=== PATIENT | female | born 1950 | race Asian ===

== ENCOUNTER 2018-09-10 08:33 | Day surgery (SDC) | payer MEDICARE, SELFPAY ==
--- NOTE | 2018-09-10 | PATH_ITS ---
[facility] Accession Number: [id number] . 01 Material submitted: . CECAL POLYP . 02 Diagnosis: Cecum, Polyp: Colonic mucosa with prominent benign lymphoid aggregate. Negative for serrated lesion, dysplasia or malignancy. MRV/09/11/2018 . 02 Electronically signed: . Josse Ko MD, PhD, Pathologist NPI- [id number] . 01 Gross description: . Received one formalin-filled container labeled with the patient's name and labeled cecal polyp. The specimen consists of a 0.3 cm portion of tissue, entirely submitted in one cassette. (DC:[id number]) /FRR . 02 Pathologist provided ICD-10: K63.5 . 02 CPT . 935575 Performed at: 01 [facility] [address] [address], [place], [place] [id number] MD Zachary Sears MD Phone: [phone] Performed at: 02 [facility] [address] [place], [place] [id number] MD Juliette Cardenas MD Phone: [phone]
--- NOTE | 2018-09-10 07:53 | PM.HP.1 ---
History of Present Illness Date Patient Seen: 09/10/18 Chief complaint: [id number] COLONOSCOPY Narrative: 68-year-old female who was seen in our office on 08/12/2018 for pre operative evaluation prior to undergoing colon polyp surveillance. She is currently on Plavix due to a history of TIA. Last colonoscopy was performed in 2013 with findings of a in an adenomatous colon polyp. There is also a family history of colon cancer in her brother at age 65 and 2 cousins less than 60. Her Plavix has been held for 5 days Patient History Medical History Adenomatous colon polyp (Acute) Breast cyst (Acute) Constipation (Acute) Difficulty walking (Acute) History of hysterectomy (Acute) Hypercholesterolemia (Acute) Intolerance to cold (Acute) Intolerance to heat (Acute) Memory disturbance (Acute) Numbness (Acute) Osteoporosis (Acute) TIA (transient ischemic attack) (Acute) Surgical History History of appendectomy (Acute) History of colonoscopy (Acute) History of total hip arthroplasty (Acute) Social History household members: spouse Meds Home Medications Medication Instructions Recorded Confirmed Type clopidogrel 75 mg PO DAILY 09/10/18 09/10/18 History magnesium 500 mg PO DAILY 09/10/18 09/10/18 History ranitidine HCl 150 mg PO BID 09/10/18 09/10/18 History rosuvastatin [Crestor] 2.5 mg PO DAILY 09/10/18 09/10/18 History Allergies Allergy/AdvReac Type Severity Reaction Status Date / Time aspirin AdvReac Mild Gastrointestinal Verified 09/10/18 09:08 Upset NSAIDS (Non-Steroidal AdvReac Mild GI upset Verified 09/10/18 09:08 Anti-Inflamma Exam Narrative Exam Narrative: General: Patient is well developed, not in apparent distress Cardiovascular: Regular rate and rhythm, no murmurs, rubs, or gallops; no evidence of edema; no palpable abdominal aortic aneurysm Gastrointestinal: Normoactive bowel sounds, soft, nontender, nondistended, no rebound tenderness, no hepatosplenomegaly, no evidence of hernia Assessment & Plan Assessment & Plan narrative: 68-year-old female with a family history of colon cancer and personal history of colon adenoma in 2013 who is here for colon polyp surveillance. The patient has discontinued Plavix for 5 days in anticipation for this procedure. Regarding the procedure(s), the risks and potential complications, benefits, and alternatives (including not doing the procedure) were discussed with the patient. The risks include but are not limited to bleeding, splenic injury, infection, perforation which may require surgical intervention, missed lesions, and adverse reactions to sedative medicines. After a question and answer period, the patient agreed to proceed with the procedure(s) and gives informed consent.
[2018-09-10 09:02] VITALS: BP 136/80; PULSE 85; RESP 15; TEMP 36.4; O2SAT 100; BMI 19.6
[2018-09-10] MEDS: SODIUM CHLORIDE 0.9% 1,000 ML 70 ML IV (09:02)
--- NOTE | 2018-09-10 10:41 | SUR.OPER ---
GLASSES AND LEFT HEARING AID TO PACU WITH PATIENT IN LABELED BAGS. RIGHT HEARING AID LEFT IN PLACE
--- NOTE | 2018-09-10 10:57 | PM.OP.ENDO ---
Operative Date/Time/Diagnoses Date of procedure: 09/10/18 Procedure Notes Procedure in detail: Surgeon: Jasbir Estrada MD Procedure: Colonoscopy with polypectomy Preoperative diagnosis: Colon polyp surveillance, family history of colon cancer in multiple relatives Postoperative diagnosis: Cecal polyp status post polypectomy, grade 2 internal hemorrhoids Medications: Conscious sedation using 4 mg IV of Midazolam and 75 mcg IV of Fentanyl Preanesthesia Assessment An H and P was performed/updated and the Px?s ASA class is 2. The procedure was discussed in detail with the patient. The potential risks and complications including infection, bleeding, missed lesions, perforation, need for surgery in case of perforation, prolonged hospital stay, and were explained. A brief question and answer period was allotted and once all questions were answered, informed consent was obtained. The patient was brought back to the procedure room and placed on standard monitoring. The patient?s vital signs were monitored continuously throughout the entire procedure. Prior to starting, a timeout was performed to confirm the patient?s identity, allergies, medications, and procedure. Plavix was held 5 days prior to this procedure. Procedure in detail The patient was placed in left lateral decubitus position and once adequate sedation was obtained a SLIME was performed. The digital rectal examination did not reveal any palpable lesions. The tip of the colonoscope was placed in the anal canal and advanced with some difficulty due to significant looping in the sigmoid colon. This was rectified by reduction of the scope and suprapubic pressure. The colonoscope was then successfully advanced all the way to the cecum which was identified by the appendiceal orifice and the ileocecal valve. Careful examination of all [place] of the colon was performed with irrigation of any residual stool. In the cecum, there was note of a 3 mm sessile polyp which was removed by means of cold Jumbo forceps. Resection and retrieval were complete. Retroflexion was performed in the rectum which revealed grade 2 internal hemorrhoids The patient tolerated the procedure well and will be brought back to the recovery area to be discharged once criteria are met. The prep was judged to be good/excellent and adequate to identify polyps less than 5 mm. The withdrawal time was 8 min. The total physician intraservice time was 18 min. Complications There were no complications and estimated blood loss was minimal. Recommendations: Resume previous diet Resume Plavix tomorrow Continue outPx medications Follow up pathology results Repeat colonoscopy in 5 years An emergency contact number was given to the patient for any complications related to the procedure
[2018-09-10 10:59] VITALS: BP 92/61; PULSE 75; RESP 10; TEMP 36.3; O2SAT 100
--- NOTE | 2018-09-10 11:02 | PM.DS.1 ---
History of Present Illness Chief complaint: [id number] COLONOSCOPY Narrative: 68-year-old female who was seen in our office on 08/12/2018 for pre operative evaluation prior to undergoing colon polyp surveillance. She is currently on Plavix due to a history of TIA. Last colonoscopy was performed in 2013 with findings of a in an adenomatous colon polyp. There is also a family history of colon cancer in her brother at age 65 and 2 cousins less than 60. Her Plavix has been held for 5 days Discharge Providers Discharge Date: 09/10/18 Primary care physician: Charanjit Waggoner MD Discharge provider: Jasbir Estrada MD Exam Vital Signs (past 8 hours): - 09/10/18 09:02 Temperature 97.6 F Pulse Rate 85 Respiratory Rate 15 Blood Pressure 136/80 Pulse Oximetry 100 Oxygen Delivery Method Room Air Narrative Exam Narrative: General: Patient is well developed, not in apparent distress Cardiovascular: Regular rate and rhythm, no murmurs, rubs, or gallops; no evidence of edema; no palpable abdominal aortic aneurysm Gastrointestinal: Normoactive bowel sounds, soft, nontender, nondistended, no rebound tenderness, no hepatosplenomegaly, no evidence of hernia Discharge Plan Discharge Med Rec/Prescriptions Prescriptions: Continued clopidogrel 75 mg Tablet 75 mg PO DAILY RF: 0 ranitidine HCl 150 mg Capsule 150 mg PO BID RF: 0 rosuvastatin [Crestor] 5 mg Tablet 2.5 mg PO DAILY RF: 0 magnesium 250 mg Tablet 500 mg PO DAILY RF: 0 Follow up/Referrals: Charanjit Waggoner MD [Primary Care Provider] - Discharge Orders: Discharge (Order); Ordered 09/10/18 Ordered By: Jasbir Estrada Provider Discharge Instructions Diet: Diet as Tolerated Visit Report/Discharge Packet Stand Alone Forms: Colonoscopy Result: [facility] Discharge Data Primary Care Provider: Charanjit Waggoner Attending Provider: Jasbir Estrada
[2018-09-10 11:04] VITALS: BP 93/59; PULSE 74; RESP 12; O2SAT 100
[2018-09-10 11:09] VITALS: BP 118/69; PULSE 75; RESP 18; O2SAT 99
[2018-09-10 11:14] VITALS: BP 113/69; PULSE 69; RESP 12; O2SAT 98
[2018-09-10 11:19] VITALS: BP 110/70; PULSE 68; RESP 9; O2SAT 98
== END 2018-09-10 11:47 | disposition home or self-care (01) ==
PROVIDERS: PCP Internal Medicine; Visit Provider Internal Medicine Gastroenterology
PROC: 0DJD8ZZ Inspection of Lower Intestinal Tract, Via Natural or Artificial Opening Endoscopic (ICD-10-PCS; CPT 45378; principal; 2018-09-10 10:30)
DX: Z86.010 Personal history of colon polyps (principal); Z80.0 Family history of malignant neoplasm of digestive organs; K64.1 Second degree hemorrhoids; D12.0 Benign neoplasm of cecum; Z86.73 Personal history of transient ischemic attack (TIA), and cerebral infarction without residual deficits
CPT/HCPCS: 45380; 88305

== ENCOUNTER → 2022-11-12 09:17 | Outpatient (CLI) | payer MEDICARE, SELFPAY ==
--- NOTE | 2022-11-12 | DI.US.S_ITS ---
PROCEDURE: US ARTERIAL DUPLEX LE BI INDICATIONS: CLAUDICATION TECHNIQUE: Color and pulse Doppler interrogation was performed of both lower extremity arterial systems, with image documentation. COMPARISON: None. FINDINGS: Right lower extremity: Common femoral artery: 159 cm/sec, with triphasic flow. Deep femoral artery: 84 cm/sec, with triphasic flow. Proximal superficial femoral artery: 102 cm/sec, with biphasic flow. Mid superficial femoral artery: 99 cm/sec, with biphasic flow. Distal superficial femoral artery: 78 cm/sec, with biphasic flow. Popliteal artery: 49 cm/sec, with biphasic flow. Posterior tibial artery: 68 cm/sec, with biphasic flow. Anterior tibial artery/dorsalis pedis: 36 cm/sec, with biphasic flow. Mccrary-scale imaging description: Minimal plaque Left lower extremity: Common femoral artery: 142 cm/sec, with triphasic flow. Deep femoral artery: 72 cm/sec, with triphasic flow. Proximal superficial femoral artery: 112 cm/sec, with triphasic flow. Mid superficial femoral artery: 100 cm/sec, with biphasic flow. Distal superficial femoral artery: 75 cm/sec, with triphasic flow. Popliteal artery: 56 cm/sec, with biphasic flow. Posterior tibial artery: 69 cm/sec, with biphasic flow. Anterior tibial artery/dorsalis pedis: 27 cm/sec, with biphasic flow. Mccrary-scale imaging description: Minimal plaque IMPRESSION: Minimal plaque. No significant stenosis by imaging or waveform/velocity criteria. Dictated by: Michele Motta M.D. on 11/12/2022 at 16:24 Approved by: Michele Motta M.D. on 11/12/2022 at 16:27
--- NOTE | 2022-11-12 | DI.NM.S_ITS ---
PROCEDURE: NM JU PERF SPECT REST & STR Rest and exercise myocardial perfusion SPECT with gated imaging and ejection fraction RADIOPHARMACEUTICAL: 10.5 mCi Tc-99m sestamibi IV at rest and 26.5 mCi Tc-99m sestamibi IV at peak exercise. A 6-imp-pxmmbpwz was performed. INDICATIONS: Chest pain, Peripheral vascular disease TECHNIQUE: Radiopharmaceutical was injected at peak stress test, and also at rest. SPECT images were obtained. SPECT myocardial perfusion images were displayed in short axis, horizontal long axis, and vertical long axis views. Gated images were reviewed using [employer] software. COMPARISON: None. CARDIAC STRESS: A standard Juve treadmill exercise tolerance test was performed by the patient under the supervision of an attending staff. The patient exercised for 6 minutes and 10 seconds; 7.0 METS; functional aerobic impairment (JAMEL) is -14%. Hemodynamic data: There is normal blood pressure and heart rate response to exercise stress. Patient achieved 116% of maximum predicted heart rate at peak exercise. Maximum blood pressure 180/80. Symptoms: Patient described atypical chest pain during the last stage of exercise that resolved immediately as the treadmill stopped. EKG: No diagnostic EKG changes of ischemia; no ectopy. FINDINGS: Raw data: There is good myocardial labeling by radiotracer. No significant motion artifacts. Gzxc-wm-twbgd ratio is 0.28 (normal is less than 0.38 for sestamibi tracer, and less than 0.50 for thallium tracer). Left ventricle function: Gated images demonstrate normal left ventricle wall thickening. No segmental wall motion abnormality. No transient ischemic dilation; TID is 0.95 (normal less than 1.3). The left ventricle resting end-diastolic volume is 48 mL. Left ventricle stress ejection fraction is >75%; normal values are above 45%. Myocardial perfusion: There is normal distribution of activity in the left and right ventricular myocardium. No fixed or reversible perfusion defects. IMPRESSION: Low risk study. No evidence of exercise-induced ischemia on ECG or SPECT imaging. Small, hyperdynamic left ventricle. Normal hemodynamic response. Good exercise capacity. Dictated by: Fatmata Sanz D.O. on 11/13/2022 at 16:13 Approved by: Fatmata Sanz D.O. on 11/13/2022 at 16:17
== END ==
PROVIDERS: PCP Internal Medicine; Referring Provider Internal Medicine; Visit Provider Internal Medicine
DX: R07.9 Chest pain, unspecified (principal); I73.9 Peripheral vascular disease, unspecified
CPT/HCPCS: 78452; 93017; 93925; A9502

== ENCOUNTER → 2023-06-26 12:59 | Outpatient (CLI) | payer MEDICARE, SELFPAY ==
--- NOTE | 2023-06-26 | PATH_ITS ---
[facility] Accession Number: [id number] No. of containers..01 Tissue . 01 Material submitted: . breast - RIGHT BREAST 8:00 4CMFN MASS . 01 Clinical history: . RIGHT BREAST 8:00 4CMFM MASS . 01 Diagnosis: A. Right Breast Mass, 8 o'clock, 4 cm From The Nipple, Biopsy: At least papillary ductal carcinoma in situ, with the following features: 1. Architectural patterns: Papillary and micropapillary. 2. Nuclear grade: Intermediate. 3. Necrosis: Not identified. 4. Amount of DCIS: Present on three cores, single largest dimension at least 5 mm in this sample. 5. Calcifications: Present. 6. Estrogen receptor status: Positive (more than 99% neoplastic cells staining, staining intensity: strong). . COMMENT: The biopsy is fragmented, limiting histologic evaluation. Atypical papillary proliferation is seen within a hyalinized/fibrous capsule. There is at least focal retention of myoepithelial markers at the periphery of the lesion, but none within the papillary cores, in support of at least papillary ductal carcinoma in situ; some fragments are devoid of myoepithelial markers at the periphery, which along the presence of a thin/hyalinized fibrous capsule, raise consideration for an encapsulated papillary carcinoma. However, fragmentation limits diagnostic certainty. There is no evidence of a conventional invasive carcinoma. Final classification awaits excision. [facility] 07/03/2023 1438 Local . 01 Electronically signed: . Yael Oro MD, Pathologist NPI- [id number] . 01 Gross description: . Received one formalin-filled container, labeled with the patient's name and designated right breast 8 o'clock 4 cm FN mass. The specimen is received with a plastic filter in container, sample loose in container and consists of multiple fragments of yellow-james soft tissue and clotted blood which range in size from less than 0.1 cm to 0.6 x 0.6 x 0.4 cm. All fragments are totally submitted in one cassette. Possible collection time per container: 2:20 p.m. Collection date per requisition: 06/26/2023. Total fixation time: Approximately 14 hours. (DC:[id number]) /FRR 06/27/2023 0302 Local . 01 Microscopic: . A panel of immunostains is performed on block A1, in order to evaluate the atypical papillary neoplasm, with appropriately staining external controls. The following represents the immunoprofile of the atypical papillary proliferation, in support of the diagnosis: . Smooth muscle myosin: Focally present at the periphery of the lesion; not highlighting myoepithelial cells within the fibrovascular cores. p63: Focally present at the periphery of the lesion; completely absent within the fibrovascular cores. CK56: Completely lost within the papillary proliferation. Synaptophysin: Negative. Chromogranin: Negative. . Predictive marker immunohistochemical studies are performed on block A1 with the atypical papillary neoplasm demonstrating the following immunoprofile: . Estrogen receptor (SP1): Positive (more than 99% tumor cells staining, staining intensity strong). . Internal controls for ER is positive. Cold ischemic time is <5 minutes. The scoring criteria for breast biomarkers by immunohistochemistry is based on the ASCO/CAP guidelines (Beck AC et al, J Clin Oncol: 2017Dec 31;36(20):3399-6026 and Deion ME et al, Arch Pathol Lab Med: 2009;134(6):907-22). Deparaffinized sections of formalin fixed tissue (along with appropriate positive controls) are incubated with the above antibody(s). Using the automated [place] stainer, tissue is incubated with the designated antibody which is then localized by a non-biotin, dual polymer detection system. The external controls are reviewed for appropriate reactivity and found to be adequate. Results on the target cell population are indicated above. These tests have not been validated on decalcified tissue. This test was developed and its performance characteristics determined by [facility]. It has not been cleared or approved by the U.S. Food and Drug Administration. The FDA has determined that such clearance or approval is not necessary. This test is used for clinical purposes. It should not be regarded as investigational or for research. . 01 Pathologist provided ICD-10: D05.11 . 01 CPT . 280248, H05107, E55435, 266552 Performed at: 01 [facility] [address] [place] [id number] MD Zachary Sears MD Phone: [phone]
--- NOTE | 2023-06-26 13:00 | DI.US.S_ITS ---
ULTRASOUND GUIDED BIOPSY RIGHT BREAST USING VACUUM DEVICE: 06/26/2023 CLINICAL: Right breast mass. PATIENT CONSENT: Risks (minor bleeding, infection, vasovagal reaction and repeat procedure), benefits and alternatives were explained to the patient and written informed consent was obtained. Correlation is made to exam dated: 06/26/2023 mammogram - [facility]. An ultrasound guided biopsy using real-time ultrasound was performed for the mass located in the right breast at 8 o'clock posterior depth 4 cm from the nipple. The skin was prepped in the usual manner. Topical and local anesthetic was administered to the access site. A biopsy needle was placed adjacent to the abnormality under ultrasound guidance. Once the needle was documented to be in the correct location, a specimen was obtained using a vacuum assisted device. The specimen was sent to the laboratory for pathological analysis. IMPRESSION: ULTRASOUND GUIDED BIOPSY MALIGNANT Ultrasound guided biopsy of the mass in the right breast posterior depth was successful. 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 Pathology results are concordant with imaging findings. A surgical/oncologic consultation is recommended. This exam was interpreted at Station ID: [id number]. Julio Cesar nieto,aty/:07/04/2023 21:28:35
--- NOTE | 2023-06-26 13:01 | DI.MG.S_ITS ---
UNILATERAL RIGHT DIGITAL DIAGNOSTIC MAMMOGRAM 3D/2D - RIGHT BREAST POST-PROCEDURE IMAGING FOR MARKER PLACEMENT: 06/26/2023 CLINICAL: Post right breast ultrasound biopsy clip placement imaging. Comparison is made to exams dated: 05/31/2023 mammogram, 05/07/2023 mammogram, and 04/24/2021 mammogram - [facility]. The right breast is heterogeneously dense, which may obscure small masses (category c / 51-75% glandular tissue). There is a marker clip in the appropriate position in the right breast at 8 o'clock anterior depth 4 cm from the nipple. There is a biopsy clip associated with the mass. IMPRESSION: POST PROCEDURE MAMMOGRAM FOR MARKER PLACEMENT There was a successful marker clip placement in the right breast anterior depth. Based on the Tyrer Cuzick model (a risk assessment model) the patient's lifetime risk is 7.0% and her 10 year risk is 6.3%. According to the ACR, ACS, and NCCN guidelines, an annual breast MRI exam along with mammogram is recommended if the patient's lifetime risk is 20% or greater. This exam was interpreted at Station ID: [id number]. NOTE: For mammograms, a report in lay terms will be sent to the patient. Approximately 15% of breast malignancies will not be visualized mammographically. In the management of a palpable breast mass, a negative mammogram must not discourage biopsy of a clinically suspicious lesion. Electronically Signed By: Julio Cesar Graham M.D. pc/:07/03/2023 08:31:25 ACR BI-RADS Category Post-procedure mammogram for marker placement
== END ==
LOC: US 12:59
PROVIDERS: PCP Internal Medicine; Referring Provider Internal Medicine; Visit Provider Internal Medicine
DX: D05.11 Intraductal carcinoma in situ of right breast (principal); R92.331 Mammographic heterogeneous density, right breast
CPT/HCPCS: 19083; 77065

== ENCOUNTER 2024-03-09 07:17 | Day surgery (SDC) | payer MEDICARE, SELFPAY ==
[2024-03-09 08:21] VITALS: BP 141/80; PULSE 85; RESP 16; TEMP 36.6; O2SAT 99
[2024-03-09] MEDS: LACTATED RINGERS 1,000 ML 42 ML IV (08:33)
--- NOTE | 2024-03-09 08:45 | PM.HP.1 ---
History of Present Illness History of Present Illness Date Patient Seen: 03/09/24 Time Patient Seen: 08:45 Chief complaint: Colonoscopy w/poss bx Narrative: 73-year-old with a personal history of colon polyps and a family history of colon cancer. Here for colonoscopy. She took her Flagyl earlier this morning. She is off Plavix 7 days. I reviewed my recent office note. No changes. [facility] Medical History Breast cyst Constipation Osteoporosis Intolerance to heat Intolerance to cold Memory disturbance Difficulty walking Numbness Adenomatous colon polyp Hypercholesterolemia TIA (transient ischemic attack) Surgical History History of hysterectomy History of appendectomy History of total hip arthroplasty History of colonoscopy Social History household members: spouse Smoking Status: Never smoker alcohol intake: never Meds Home Medications and Allergies Home Medications Medication Instructions Recorded Confirmed Type clopidogrel 75 mg tablet 75 mg PO DAILY 09/10/18 03/09/24 History magnesium 250 mg tablet 500 mg PO DAILY 09/10/18 03/09/24 History rosuvastatin 5 mg tablet (Crestor) 2.5 mg PO DAILY 09/10/18 03/09/24 History Allergies Allergy/AdvReac Type Severity Reaction Status Date / Time aspirin AdvReac Mild Gastrointestinal Verified 03/09/24 08:14 Upset NSAIDS (Non-Steroidal AdvReac Mild GI upset Verified 03/09/24 08:14 Anti-Inflamma Review of Systems Review of Systems ROS: Yes All systems reviewed with the patient and are negative except as otherwise documented Exam Vital Signs (past 8 hours): - 03/09/24 08:21 Temperature 98 F Pulse Rate 85 Respiratory Rate 16 Blood Pressure 141/80 H Pulse Oximetry 99 Oxygen Delivery Method Room Air Oxygen Delivery Method Room Air Const General: cooperative HENMT Head: normal to inspection Eyes General: appearance normal, both eyes and all related structures Neck Neck: normal visual inspection Chest Chest: normal inspection of the chest Resp Effort & Inspection: normal respiratory effort Cardio Rate: regular rate GI Inspection: normal to inspection Skin General: no rashes or lesions noted Neuro General: patient alert and patient awake Extrem General: normal to inspection and no pedal edema Psych Appearance: grossly normal Assessment & Plan Assessment & Plan narrative: 73-year-old female with a family history of colon cancer and a personal history of colon polyps. Colonoscopy is pursued today. Time-Based Coding :: [TOTAL MINUTES] spent with patient and on the chart (including review of chart, obtaining history, exam, reviewing outside data, placing orders, documenting exam and treatment plan, and counseling patient) on [DATE].
--- NOTE | 2024-03-09 08:47 | PM.PREOP ---
Pre-operative Note Interval Note History & Physical reviewed/Exam performed by Physician: Yes Changes to H&P: No ASA Class (for procedural sedation): III
--- NOTE | 2024-03-09 09:54 | PM.OP.COLON ---
Operative Date/Time/Diagnoses Date of procedure: 03/09/24 Time of procedure: 09:54 Pre-op diagnosis: Family history of colon cancer personal history of colon polyps Post-op diagnosis: same Procedure & Clinicians Study performed: Colonoscopy Same procedure as scheduled: Yes Indications: Personal history of colon polyps family history of colon cancer Surgeon: Maykel Ponce Procedure Notes SCOAP/Timeout: Done Procedure in detail: After the risks and benefits were explained, written and verbal informed consent was obtained. The patient was brought into the procedure room and placed into the left lateral decubitus position. Please see anesthesia note for sedation details. Digital rectal examination was accomplished. The scope was introduced into the patient and advanced under direct visualization to the cecum as identified by the appendiceal orifice and ileocecal valve. The scope was slowly withdrawn to carefully examine the mucosa for any defects or lesions. Comprehensive imaging was accomplished throughout the rectum including the dentate line. The colon was decompressed, the scope was then removed from the patient who tolerated the procedure well. Pediatric colonoscope Bowel prep adequate Scope withdrawal time: 9 minutes Sedation minutes: 26 Specimen(s): none sent Complications: none Impression: Patient had a moderately redundant and tortuous colon. Navigation was challenging. I did not appreciate any polyps mass lesions or inflammatory features throughout. Endoscopic diagnosis 1. Redundant colon 2. Tortuous colon 3. Otherwise visually normal exam Post-procedure Plan for aftercare: 1. Consider repeat colonoscopy in 5 years in the context of family history. 2. Okay to resume Plavix today. Disposition: PACU
[2024-03-09 09:55] VITALS: BP 114/73; PULSE 66; RESP 21; TEMP 36.2; O2SAT 100
[2024-03-09 10:00] VITALS: BP 107/63; PULSE 69; RESP 14; O2SAT 100
[2024-03-09 10:05] VITALS: BP 124/74; PULSE 64; RESP 12; TEMP 36.1; O2SAT 99
== END 2024-03-09 10:28 | disposition home or self-care (01) ==
PROVIDERS: PCP Internal Medicine; Referring Provider Internal Medicine Gastroenterology; Visit Provider Internal Medicine Gastroenterology
PROC: 0DJD8ZZ Inspection of Lower Intestinal Tract, Via Natural or Artificial Opening Endoscopic (ICD-10-PCS; CPT 45378; principal; 2024-03-09 09:00)
DX: Z12.11 Encounter for screening for malignant neoplasm of colon (principal); Z86.010 Personal history of colon polyps; Z80.0 Family history of malignant neoplasm of digestive organs
CPT/HCPCS: G0105; J2704

== ENCOUNTER → 2024-11-17 10:19 | Outpatient (CLI) | payer MEDICARE, SELFPAY ==
--- NOTE | 2024-11-17 10:20 | DI.MRI.S_ITS ---
PROCEDURE: MR HEAD/BRAIN WO CON INDICATIONS: Memory changes TECHNIQUE: Non-contrast axial T1 spin echo, axial T2 fast spin echo, sagittal and axial FLAIR, coronal T2 fast spin echo, axial gradient echo, axial diffusion and ADC through the brain. COMPARISON: None. FINDINGS: Image quality: Excellent. CSF spaces: Ventricles appear symmetric in size and shape. Basal cisterns are patent. No extra-axial fluid collections. Brain: No intracranial bleeds or mass effects. There is cerebral volume loss for age. There are periventricular and deep white matter chronic small vessel ischemic changes. Brainstem appears normal. Diffusion-weighted images show no acute infarct. No chronic ischemic insults. Normal intravascular flow voids are present. Skull and face: Calvarial bone marrow is normal in signal. Orbits are normal. Sinuses: Mild mucosal thickening of the ethmoid air cells bilaterally. Sinuses and mastoids are otherwise clear. IMPRESSION: 1. No acute process. No recent infarct. 2. Mild volume loss and small vessel ischemic disease. Dictated by: Milagro Olivas M.D. on 11/17/2024 at 12:05 Approved by: Milagro Olivas M.D. on 11/17/2024 at 12:06
--- NOTE | 2024-11-17 10:20 | DI.US.S_ITS ---
PROCEDURE: US CAROTID DOPPLER BI INDICATIONS: Dizziness TECHNIQUE: Color and pulse Doppler interrogation was performed of both carotid systems, with image documentation and velocity measurements. COMPARISON: None. FINDINGS: Stenosis calculations are based on SRU (Society of Radiologists in Ultrasound) criteria. Right side: Brachial blood pressure: 145/73 mm Hg. Common carotid artery peak systolic velocity: 60 cm/sec. Internal carotid artery peak systolic velocity: 109 cm/sec. Internal carotid artery end diastolic velocity: 41 cm/sec. External carotid artery peak systolic velocity: 57 cm/sec. ICA/CCA peak systolic ratio: 1.8. Mccrary scale imaging description: Mild calcified plaque. Percent internal carotid artery stenosis: Less than 50% stenosis. Vertebral artery: Flow direction is antegrade. Left side: Brachial blood pressure: 143/78 mm Hg. Common carotid artery peak systolic velocity: 80 cm/sec. Internal carotid artery peak systolic velocity: 139 cm/sec. Internal carotid artery end diastolic velocity: 50 cm/sec. External carotid artery peak systolic velocity: 58 cm/sec. ICA/CCA peak systolic ratio: 1.8. Mccrary scale imaging description: Mild calcified plaque Percent internal carotid artery stenosis: 50-69% stenosis. Vertebral artery: Flow direction is antegrade. IMPRESSION: 1. In the right carotid artery, there is less than 50% stenosis stenosis based on peak systolic velocity criteria. 2. In the left carotid artery, there is 50-69% stenosis stenosis based on peak systolic velocity criteria. 3. Antegrade vertebral arteries. Dictated by: Tyree Agudelo M.D. on 11/17/2024 at 21:38 Approved by: Tyree Agudelo M.D. on 11/17/2024 at 21:43
--- NOTE | 2024-11-17 10:20 | DI.US.S_ITS ---
PROCEDURE: US THYROID INDICATIONS: Goiter TECHNIQUE: Real-time scanning was performed of the thyroid gland, with image documentation. COMPARISON: None. FINDINGS: Thyroid: Right lobe measures 6.2 x 2.6 x 2.1 cm. Left lobe measures 4.5 x 1.3 x 1 cm. Isthmus is 1.6 cm thick. Echotexture is homogeneous. Nodule number: 1 Location: Right superior Size: 4 x 2.4 x 1.9 cm. Composition: Solid Echogenicity: Hypoechoic Shape: wider than tall. Margins: Ill-defined Echogenic foci: Comet tail artifact Total points: 4 ACR TI-RADS category: TR 4 Nodule number: 2 Location: Right inferior Size: 1.2 x 1 x 0.7 cm. Composition: Solid Echogenicity: Hypoechoic Shape: wider than tall. Margins: Smooth Echogenic foci: Comet tail artifact Total points: 4 ACR TI-RADS category: TR 4 IMPRESSION: 1. Right superior thyroid nodule measuring 4 cm. TR 4. -FNA is recommended. 2. Right inferior thyroid nodule measuring 1.2 cm. TR 4. -Recommend follow-up ultrasound in 1 year. ACR TI-RADS definitions and recommendations: TI-RADS 1 (benign): 0 points. FNA not needed. TI-RADS 2 (not suspicious): 2 points. FNA not needed. TI-RADS 3: 3 points. * FNA if 2.5 cm or larger, follow up if 1.5 cm or larger (at 1, 3, and 5 years). TI-RADS 4: 4-6 points. * FNA if 1.5 cm or larger, follow up if 1 cm or larger (at 1, 2, 3, and 5 years). TI-RADS 5: 7 points or more. * FNA if 1 cm or larger, follow up if 0.5 cm or larger (every year for 5 years). Dictated by: Tyree Agudelo M.D. on 11/17/2024 at 21:27 Approved by: Tyree Agudelo M.D. on 11/17/2024 at 21:35
== END ==
PROVIDERS: PCP Family Medicine; Referring Provider Family Medicine; Visit Provider Family Medicine
DX: I67.82 Cerebral ischemia (principal); I65.23 Occlusion and stenosis of bilateral carotid arteries; E04.2 Nontoxic multinodular goiter; R41.3 Other amnesia; R42 Dizziness and giddiness
CPT/HCPCS: 70551; 76536; 93880

== ENCOUNTER → 2024-12-07 13:15 | Outpatient (CLI) | payer MEDICARE, SELFPAY | LOC: CAR 13:15 | PROVIDERS: PCP Family Medicine; Referring Provider Family Medicine; Visit Provider Family Medicine | DX: R42 Dizziness and giddiness (principal) | CPT/HCPCS: 93246 ==

== ENCOUNTER → 2025-01-08 12:24 | Outpatient (CLI) | payer MEDICARE, SELFPAY ==
--- NOTE | 2025-01-08 | PATH_ITS ---
Note [facility] Accession Number: [id number] TESTS RESULT FLAG UNITS REF RANGE LAB Clinician Provided Cytology Information No. of containers..01 Other (Miscellaneous) No. of containers..02 Previously Prepared Cytology Slide Source: RIGHT THYROID NODULE DIAGNOSIS: RIGHT THYROID NODULE, FINE NEEDLE ASPIRATION. BENIGN. ADEQUATE FOR EVALUATION. COLLOID AND FOLLICULAR GROUPS ARE PRESENT. BENIGN FOLLICULAR (GOITEROUS) NODULE (BETHESDA CATEGORY II), SEE COMMENT. COMMENT: MICROSCOPIC EXAMINATION REVEALS A MILDLY CELLULAR ASPIRATE, COMPOSED OF COLLOID, FOLLICULAR GROUPS WITHOUT SIGNIFICANT CYTOLOGIC OR ARCHITECTURAL ATYPIA, WITH FOCAL HURTHLE CELL-LIKE CHANGES, AND BACKGROUND MACROPHAGES. THESE FINDINGS SUPPORT A BENIGN FOLLICULAR (GOITEROUS) NODULE. CORRELATION WITH CLINICAL AND RADIOGRAPHIC FINDINGS IS RECOMMENDED. ACCORDING TO THE B[place]DA REPORTING SYSTEM FOR THYROID CYTOPATHOLOGY, THE RISK OF MALIGNANCY IN THE CATEGORY BENIGN-CATEGORY II IS 0-3%; THEREFORE RECOMMEND CONTINUED ULTRASOUND SURVEILLANCE WITH REPEAT FNA IF THE NODULE SIGNIFICANTLY INCREASES IN SIZE. Pathologist ICD10: 01 E04.1 Signed out by: Meghana Moore MD, Pathologist NPI- [id number] Performed by: Quinton Andrew, [employer] ([facility]) Gross description: 30 CC, COLORLESS, CLEAR RECIEVED: IN CYTOLYT WITH 6 ALCOHOL FIXED AND 6 QUICK STAINED SLIDES ALSO 1 RNA VIAL WILL ON 07-09-2026.VO /VDU 01/11/[address] [facility] FLAG LEGEND: L-Low Normal,H-High Normal,LL-Alert Low,HH-Alert High <-Panic Low,>-Panic High,A-Abnormal,AA-Critical Abnormal Performed at: 01 =[address], [place] [address] Zachary Sears MD, Performed at: [address] [address], [place], [place] [id number] MD Zachary Sears MD Phone: [phone]
--- NOTE | 2025-01-08 12:27 | DI.US.S_ITS ---
PROCEDURE: US FINE NEEDLE ASPIRATION INDICATIONS: Rt superior thyroid nodule 4cm TR4 TECHNIQUE: The indications, alternatives, benefits, risks, and complications of the procedure were explained to the patient. Written informed consent was obtained and placed in the chart. The area of interest was examined sonographically and a site was chosen for ultrasound guided percutaneous sampling. The skin was prepared and draped in the usual fashion, and anesthetized with 1% lidocaine infiltrated from the skin down to the lesion. Multiple passes were then performed, with contents emptied into an appropriate pathology specimen container. A bandage was applied to the area of access at completion of the study. COMPARISON: None. FINDINGS: Location(s) of lesion(s) sampled: Right thyroid lobe superiorly Elizabeth: 25 gauge hypodermic needles. Number of passes: 6 Medications: 1% lidocaine for local anaesthesia. Complications: None. IMPRESSION: Successful ultrasound-guided right thyroid lobe nodule fine needle aspiration, with cytology results pending. Dictated by: Vazquez Mendoza M.D. on 01/08/2025 at 14:48 Approved by: Vazquez Mendoza M.D. on 01/08/2025 at 14:49
== END ==
PROVIDERS: PCP Family Medicine; Referring Provider Family Medicine; Visit Provider Radiology Diagnostic Radiology
DX: E04.1 Nontoxic single thyroid nodule (principal)
CPT/HCPCS: 10005

== ENCOUNTER → 2025-01-14 14:47 | Outpatient (CLI) | payer MEDICARE, SELFPAY ==
[2025-01-14 16:56] LABS: Ferritin 44 ng/mL (11-264)
[2025-01-14 17:43] LABS: TSH w/ Reflex to FT4 1.16 uIU/mL (0.47-4.68)
[2025-01-14 18:19] LABS: Folate > 20.0 ng/mL (2.76-20.0); Vitamin B12 969 pg/mL (239-931)
== END ==
PROVIDERS: PCP Family Medicine; Referring Provider Family Medicine; Visit Provider Family Medicine
DX: R41.3 Other amnesia (principal); M81.0 Age-related osteoporosis without current pathological fracture; G45.9 Transient cerebral ischemic attack, unspecified; E78.00 Pure hypercholesterolemia, unspecified; D75.89 Other specified diseases of blood and blood-forming organs; R53.83 Other fatigue
CPT/HCPCS: 36415; 82607; 82728; 82746; 84443

== ENCOUNTER → 2025-05-06 12:53 | Outpatient (CLI) | payer MEDICARE, SELFPAY ==
[2025-05-06 14:41] LABS: Add Manual Diff / Slide Review NO; Hematocrit 39.6 % (36-46); Hemoglobin 13.3 g/dL (12.0-16.0); Lymphocytes Absolute Auto 1000 /uL (1100-4500); Mean Corpuscular HGB Conc 33.6 % (30-36); Mean Corpuscular Hemoglobin 31.7 PG (26-34); Mean Corpuscular Volume 94.6 fL (80-100); Platelet Count 191 X10^3/uL (150-400)
[2025-05-06 15:14] LABS: Alanine Aminotransferase 34 IU/L (<35); Albumin 4.6 g/dL (3.5-5.0); Albumin Globulin Ratio 1.8 (1.0-2.8); Alkaline Phosphatase 53 U/L (38-126); Blood Urea Nitrogen 15 mg/dL (7-17); Calcium 9.6 mg/dL (8.4-10.2); Carbon Dioxide 30 mmol/L (22-32); Chloride 103 mmol/L (98-107); Cholesterol 215 mg/dL (140-199); Estimated Glomerular Filt Rate > 60 mL/min (>60); Globulin 2.6 g/dL (1.7-4.1); Glucose 98 mg/dL (70-99); HDL Cholesterol 95 mg/dL (40-60); HEMOLYSIS < 15 (0-50); Potassium 3.9 mmol/L (3.4-5.1); Sodium 141 mmol/L (137-145); Total Protein 7.2 g/dL (6.3-8.2); Triglycerides 71 mg/dL (35-150)
[2025-05-06 15:32] LABS: Vitamin D 25 Hydroxy (D3) 52.0 ng/mL (30.0-100.0)
[2025-05-06 15:49] LABS: TSH w/ Reflex to FT4 1.10 uIU/mL (0.47-4.68)
== END ==
PROVIDERS: PCP Family Medicine; Referring Provider Family Medicine; Visit Provider Family Medicine
DX: R03.0 Elevated blood-pressure reading, without diagnosis of hypertension (principal); M81.0 Age-related osteoporosis without current pathological fracture; K21.9 Gastro-esophageal reflux disease without esophagitis; E78.00 Pure hypercholesterolemia, unspecified; E04.9 Nontoxic goiter, unspecified; R42 Dizziness and giddiness; Z79.899 Other long term (current) drug therapy
CPT/HCPCS: 36415; 80053; 80061; 82043; 82306; 82570; 84443; 85025